=== PATIENT | female | born 1985 | race Caucasian/White ===

== ENCOUNTER → 2022-04-10 | Outpatient (CLI) | payer OTHER, SELFPAY ==
--- NOTE | 2022-04-10 10:21 | RAD_ITS ---
STUDY: X-RAY CHEST REASON FOR EXAM: Female, 37 years old. Thyroid enlargement. TECHNIQUE: Frontal and lateral views of the chest. COMPARISON: None. FINDINGS: The lungs are clear and expanded. There is no demonstrated pleural abnormality. Normal size heart. Normal mediastinum and josé luis. Normal visualized pulmonary arteries. Normal visualized aortic arch and descending thoracic aorta. Normal visualized thoracic spine. Normal visualized ribs, clavicles, and shoulders. Electronic device overlying the left midlung zone. There is no demonstrated abnormality of the visualized soft tissue structures of the upper abdomen. RAD/Chest PA and Lateral IMPRESSION: No active or acute cardiopulmonary disease. Electronically Signed: Justin Chew MD at 10:40 EDT ,
[2022-04-10 11:34] LABS: Hemoglobin A1c 5.5 % (3.8-5.6)
[2022-04-10 11:49] LABS: T3 Total - Triiodothyronine 1.32 ng/mL (0.6-1.81); Vitamin D,25 Hydroxy 27.2 ng/mL
[2022-04-10 11:56] LABS: Ferritin 15 ng/mL (8-252); Iron 86 ug/dL (50-170); Iron Binding Capacity,Total 467 ug/dL (250-450); Thyroid Stim Hormone (TSH) 1.29 uIU/mL (0.358-3.74); Troponin-I HS 18 pg/mL (3.0-54.0)
== END | disposition home or self-care (01) ==
PROVIDERS: PCP Student in an Organized Health Care Education/Training Program; Referring Provider Nurse Practitioner Family; Visit Provider Nurse Practitioner Family
DX: I47.1 Supraventricular tachycardia (principal); E04.9 Nontoxic goiter, unspecified; R77.8 Other specified abnormalities of plasma proteins
CPT/HCPCS: 36415; 71046; 82306; 82728; 83036; 83540; 83550; 84439; 84443; 84480; 84484

== ENCOUNTER → 2022-04-14 | Outpatient (CLI) | payer OTHER, SELFPAY ==
--- NOTE | 2022-04-14 11:26 | US_ITS ---
EXAM: US SOFT TISSUES HEAD AND NECK, THYROID CLINICAL INDICATION: SVT, ENLARGED THYROID TECHNIQUE: Greyscale and color doppler imaging was performed of the thyroid gland. This report was created using [employer] report generation technology. COMPARISON: None. FINDINGS: LEFT THYROID LOBE: Left thyroid lobe measures 4.8 x 1.6 x 1.3 cm with somewhat heterogeneous echo pattern. No distinct left thyroid nodule. RIGHT THYROID LOBE: Right thyroid lobe measures 5.4 x 1.8 x 1.4 cm. This diffusely irregular echogenicity. 10 mm nodule noted within the lower pole This nodule is solid or almost completely solid, hyperechoic or isoechoic, [id number], smoothly marginated and contains no echogenic foci. This nodule is mildly suspicious but no FNA or follow-up is necessary given the small size of this nodule. ISTHMUS: Isthmus measures 3 mm in AP dimension. No thyroid nodules are present. US/Thyroid IMPRESSION: Mildly enlarged thyroid gland with heterogeneous echotexture suggestive goiter. Electronically Signed: Landry Zaldivar MD at 13:33 EDT ,
== END | disposition home or self-care (01) ==
LOC: US 11:25
PROVIDERS: PCP Student in an Organized Health Care Education/Training Program; Referring Provider Nurse Practitioner Family; Visit Provider Nurse Practitioner Family
DX: I47.1 Supraventricular tachycardia (principal); E04.9 Nontoxic goiter, unspecified
CPT/HCPCS: 76536

== ENCOUNTER → 2022-04-26 | Outpatient (CLI) | payer OTHER, SELFPAY ==
--- NOTE | 2022-04-26 10:05 | ECHOD_ITS ---
Reason For Study: SVT/Tachycardia Procedure This was a 2D Doppler, Color Flow transthoracic echocardiogram. Exam performed in department. Left Ventricle Normal LV size. Left ventricular systolic function is normal. The estimated ejection fraction is 60 %. Normal diastology for age. No regional wall motion abnormalities noted. Right Ventricle Normal RV size. Normal systolic function. Atria Normal left atrium. Normal right atrium. Mitral Valve Normal mitral valve. Tricuspid Valve Normal tricuspid valve. Aortic Valve Normal aortic valve. Trisinus/trileaflet aortic valve. Pulmonic Valve Normal pulmonic valve. Great Vessels Normal aortic root. Pericardium/Pleural No pericardial effusion. MMode/2D Measurements & Calculations LVIDd: 4.3 cm IVSd: 0.86 cm Ao root diam: 2.9 cm LVIDs: 2.6 cm LVPWd: 0.86 cm LA dimension: 3.7 cm RVDd: 3.1 cm FS: 40.2 % LAV(MOD-bp): 43.1 ml LA A4 area: 17.0 cm2 RA A4 area: 11.8 cm2 LAV(MOD-bp) Indexed: 22.0 ml/m2 LAV(MOD-sp2): 38.6 ml LAV(MOD-sp4): 47.6 ml Time Measurements MV dec time: 0.22 sec Doppler Measurements & Calculations MV E max kris: 92.0 cm/sec Lat Peak E' Kris: 13.8 cm/sec Med Peak E' Kris: 13.6 cm/sec MV A max kris: 65.1 cm/sec E/E' lat: 6.6 E/E' med: 6.7 MV E/A: 1.4 MV V2 max: 93.4 cm/sec MV P1/2t max kris: 90.8 cm/sec Ao V2 max: 141.6 cm/sec MV max P.5 mmHg MV P1/2t: 50.5 msec Ao max P.0 mmHg MV V2 mean: 58.8 cm/sec MV dec slope: 527.1 cm/sec2 Ao V2 mean: 99.3 cm/sec MV mean P.6 mmHg MVA(P1/2t): 4.4 cm2 Ao mean P.5 mmHg MV V2 VTI: 21.4 cm Ao V2 VTI: 30.2 cm LV V1 max: 116.8 cm/sec PA V2 max: 125.4 cm/sec LV V1 max P.5 mmHg PA V2 mean: 96.2 cm/sec LV V1 mean P.0 mmHg LV V1 mean: 80.9 cm/sec LV V1 VTI: 23.4 cm ECHO/Echo Complete Interpretation Summary Normal LV size. Left ventricular systolic function is normal. The estimated ejection fraction is 60 %. Normal diastology for age. Ordering Physician: Marnie Mccann Referring Physician: Marnie Mccann Performed By: Shola Lee RCS
--- NOTE | 2022-04-26 19:35 | STRESSREP ---
Stress Test Report Exercise stressed. 37-year-old lady with a history of supraventricular tachycardia. Stress protocol: Resting EKG demonstrates normal sinus rhythm with a rate of 91 bpm normal intervals are noted resting blood pressure is 118/82 mmHg. The patient exercised according to the regular Doug protocol for total duration of 9 minutes the patient completed stage III of the Doug protocol. The maximum heart rate attained was 179 bpm which was 97% of max impacted heart rate the maximum workload was 10.4 metabolic equivalents. At rest there were no ST or T wave changes noted suggest ischemia and at peak exercise upsloping ST changes were noted with did not meet the criteria for ischemia. No clinical angina was noted no arrhythmias were noted. The peak blood pressure was 152/70 mmHg. Conclusion: Exercise stress test with no EKG criteria for ischemia at a high workload. No clinical angina noted. No arrhythmias noted.
== END | disposition home or self-care (01) ==
LOC: CVS 10:02
PROVIDERS: PCP Student in an Organized Health Care Education/Training Program; Referring Provider Nurse Practitioner Family; Visit Provider Nurse Practitioner Family
DX: I47.1 Supraventricular tachycardia (principal)
CPT/HCPCS: 93017; 93306

== ENCOUNTER 2023-07-28 16:36 | Emergency (ER) | payer OTHER, SELFPAY ==
[2023-07-28 16:37] VITALS: BP 154/108; PULSE 221; RESP 18; TEMP 36.2; O2SAT 100; BMI 37.6
--- NOTE | 2023-07-28 16:50 | EKG12_ITS ---
Test Reason : SVT Blood Pressure : / mmHG Vent. Rate : 114 BPM Atrial Rate : 114 BPM P-R Int : 142 ms QRS Dur : 088 ms QT Int : 334 ms P-R-T Axes : 060 080 029 degrees QTc Int : 460 ms Sinus tachycardia Nonspecific ST abnormality Abnormal ECG Confirmed by ADRIANNE BRYANT, KALI ([id number]), video news editor ALBERT SANCHEZ ([id number]) on 08/01/2023 12:40:02 PM Referred By: YUE Confirmed By:KALI SILVER MD
--- NOTE | 2023-07-28 16:52 | EDS_ITS ---
HPI History of Present Illness Chief Complaint: Palpitations Informant: patient Onset/Context/Timing Onset: Hours (1) Context: Sudden Onset Timing: Continuous Quality: Racing Location: Chest Worsened by: Nothing Relieved by: Nothing Narrative Narrative: Patient presents with palpitations that began today. Patient states they began approxi-1 hour prior to arrival. Patient states it began rather suddenly. Patient states that it feels like her heart is racing. Patient states I am in SVT again. Patient states that she has had adenosine in the past. Patient states last time it took 2 doses to convert her back to a sinus rhythm. Patient admits to some pain in her chest. Patient admits to some slight shortness of breath and occasional cough. Patient denies any nausea or vomiting. Patient denies any diaphoresis. Pain states she has been trying vagal maneuvers for the past hour with no improvement. [facility] Medical History (Updated 07/28/23 @ 18:[address] Neal Lafleur DO) Supraventricular tachycardia Allergy/AdvReac Type Severity Reaction Status Date / Time No Known Allergies Allergy Verified 07/28/23 16:37 Surgical History (Updated 07/28/23 @ 16:[address] Neal Lafleur DO) History of surgical removal of pilonidal cyst Hx of tonsillectomy Social History (Updated 07/28/23 @ 16:[address] Neal Lafleur DO) Smoking Status: Never smoker alcohol intake: current alcohol intake frequency: a few times a month ROS ROS ED Constitutional Constitutional ED: Denies chills or fever(s) Eyes Eyes: Denies blurry vision or change in vision ENT ENT ED: Denies rhinorrhea or sore throat Cardiovascular Cardiovascular: Reports chest pain, palpitations and racing heartbeat Respiratory/Chest Respiratory/Chest: Reports cough and dyspnea Gastrointestinal Gastrointestinal: Denies nausea or vomiting Genitourinary Genitourinary ED: Denies dysuria or hematuria Musculoskeletal Musculoskeletal: Denies back pain or neck pain Integumentary Denies abscess or rash Neurologic Neurologic: Denies headache(s) or weakness Allergic/Immunologic Allergic/Immunologic ED: Denies mouth swelling or urticaria EXAM Physical Exam Const Vital Signs: 07/28/23 16:37 07/28/23 17:11 07/28/23 17:17 Temperature 97.2 F L Temperature Source Temporal Pulse Rate 221 H 125 H 113 H Respiratory Rate 18 18 12 Blood Pressure 154/108 H 118/103 H 130/92 H Blood Pressure Mean 123 108 104 Pulse Ox 100 97 98 Oxygen Delivery Method Room Air Room Air Room Air Positive well nourished, well developed and obese General Appearance ED: well developed and NAD Nutritional Appearance: obese HEENT Reports moist mucous membranes Neck supple and no JVD Resp normal respiratory effort and clear to auscultation bilaterally Cardio regular rate and regular rhythm GI non-tender and non-distended Palpation: soft Extremity General Extremety ED: Negative for edema or tenderness General Extremity: Negative for edema Neuro oriented x3, CN's II-XII intact bilaterally and no sensory deficits noted Sensorium / Orientation: alert Motor Exam: strength 5/5 throughout Psych mental status grossly normal MDM MDM MDM Narrative Medical decision making narrative: Differential diagnosis includes supraventricular tachycardia, cardiac dysrhythmia, cardiac ischemia, anemia, and electrolyte abnormality. CBC will be obtained to assess for leukocytosis and anemia. Basic metabolic profile will be obtained to assess for electrolyte abnormality and renal function. EKG will be obtained to assess for cardiac dysrhythmia and cardiac ischemia. Lab Data Attestation: I reviewed the patient's lab results. Lab results narrative: CBC was reviewed. There is a mild leukocytosis of 13.6. The remainder is within normal limits. Basic metabolic profile was reviewed. BUN was 14 and creatinine was 1.27. Glucose was slightly elevated at 180. Labs: Laboratory Results - last 24 hr 07/28/23 17:00 WBC 13.6 H RBC 4.69 Hgb 12.6 Hct 39.9 MCV 85.1 MCH 26.9 L MCHC 31.6 L RDW Std Deviation 41.1 RDW Coeff of Lewis 13.3 Plt Count 375 MPV 10.2 Immature Gran % (Auto) 0.500 Neut % (Auto) 61.3 Lymph % (Auto) 28.6 Wilkinson % (Auto) 7.7 Eos % (Auto) 1.3 Baso % (Auto) 0.6 Absolute Neuts (auto) 8.4 H Absolute Lymphs (auto) 3.90 Nucleated RBC % 0 Sodium 138 Potassium 3.8 Chloride 105 Carbon Dioxide 27.0 Anion Gap 6 BUN 14 Creatinine 1.27 H Estim Creat Clear Calc 51.86 Est GFR (MDRD) Af Amer 60 Est GFR (MDRD) Non-Af 50 L BUN/Creatinine Ratio 11.0 Glucose 180 H Calcium 9.3 EKG Initial EKG: Attestation: I personally reviewed and interpreted this EKG as follows: Interpretation: SVT (204) Comments: EKG was obtained. On my independent interpretation, it shows supraventricular tachycardia with a rate of 204. QRS interval was normal at 78 ms. QTc interval was normal at 405 ms. [place] is normal at 85. There are nonspecific ST-T wave changes which are likely rate related. Prior EKG tracings: not available for review Prior: No Prior Follow-up EKG: Attestation: I personally reviewed and interpreted this EKG as follows: Interpretation: Sinus Tachycardia (114) and Non-Specific ST Changes Comments: EKG was obtained. On my independent interpretation, it showed a sinus tachycardia with a rate of 114. DC interval, QRS interval, and QTc intervals were all normal. [place] was normal. There are no acute ST or T wave changes. Treatment and Re-Evaluation :: Patient was given 6 mg of adenosine with no change in symptoms or rhythm. Patient was given 12 mg of adenosine. Patient converted to a sinus tachycardia with a rate in the 140s. Patient is feeling better. Patient was given IV fluids. She was feeling better on reevaluation. Patient's heart rate improved to 113. Patient was instructed to drink plenty of fluids. Patient was instructed to follow-up with her primary care physician in 5 to 7 days. Patient was instructed return if worse in any way. Patient understood and was agreeable with the plan. All questions were answered. Discharge Plan Triage Chief Complaint: Palpitations ED Provider: Neal Lafleur Dx/Rx/DC Orders Clinical Impression: Hyperglycemia, Supraventricular tachycardia Instructions: ED Understanding Supraventricular Tachycardia (SVT) Primary Care Provider: Fernando Benjamin Referrals: Fernando Benjamin, [Primary Care Provider] - 5-7 Days Disposition Disposition: Home, Self Care
--- NOTE | 2023-07-28 16:52 | ED.RN ---
NO OLD EKG
[2023-07-28] MEDS: Adenosine 6 MG/2 ML Syringe IV (17:03)
[2023-07-28] MEDS: Adenosine 6 MG/2 ML Syringe 12 MG IV (17:05)
[2023-07-28 17:07] LABS: Absolute Neutrophil Count 8.4 X10^3/uL (2.0-7.7); Basophil# 0.08 X10^3/uL; Basophil% 0.6 % (0-1); Eosinophil# 0.18 X10^3/uL; Eosinophils% 1.3 % (0-5); Hematocrit 39.9 % (37-47); Hemoglobin 12.6 g/dL (12.0-15.0); Lymphocyte % 28.6 % (19-41); Mean Corp Hgb Conc 31.6 g/dL (32-36); Mean Corpuscular Hgb 26.9 pg (27.0-32.0); Mean Corpuscular Volume 85.1 fL (81-99); Mean Platelet Vol. 10.2 fl (6.2-12.0); Monocyte# 1.05 X10^3/uL; Monocyte% 7.7 % (0-10); NRBC Flagged by Analyzer 0 % (0-5); Neutrophil # 8.35 X10^3/uL (2.7-7.7); Neutrophil % 61.3 % (47-70); Platelet Count 375 K/mm3 (150-450); RBC Distribution Width CV 13.3 % (11.6-14.6); RBC Distribution Width SD 41.1 fl (35.1-43.9); Red Blood Count 4.69 M/mm3 (4.2-5.4); White Blood Count 13.6 K/mm3 (4.4-11.0)
[2023-07-28] MEDS: 0.9% Normal Saline (1000mL) 1,000 ML 1000 ML IV ×2 (17:10→18:48)
[2023-07-28 17:11] VITALS: BP 118/103; PULSE 125; RESP 18; O2SAT 97
[2023-07-28 17:17] VITALS: BP 130/92; PULSE 113; RESP 12; O2SAT 98
[2023-07-28 17:24] LABS: Anion Gap 6 (5-15); BUN 14 mg/dL (7-18); Calcium,Total 9.3 mg/dL (8.5-10.1); Chloride 105 mmol/L (98-107); Creatinine, Serum 1.27 mg/dL (0.55-1.02); EST Glomerular Filtration Rate 50 mL/min (>60); Est Glom Filt Rate - Afr Amer 60 mL/min (>60); Estimated Creatinine Clearance 51.86 ml/min; Glucose 180 mg/dL (74-106); Potassium 3.8 mmol/L (3.5-5.1); Sodium Level 138 mmol/L (136-145)
--- NOTE | 2023-07-28 17:32 | EKG12_ITS ---
Test Reason : DYSRHYTHMIA Blood Pressure : / mmHG Vent. Rate : 204 BPM Atrial Rate : 000 BPM P-R Int : 000 ms QRS Dur : 078 ms QT Int : 220 ms P-R-T Axes : 000 085 -08 degrees QTc Int : 405 ms Critical Test Result: High HR Supraventricular tachycardia Marked ST abnormality, possible inferior subendocardial injury Abnormal ECG Confirmed by ADRIANNE BRYANT, KALI ([id number]), sound editor ALBERT SANCHEZ ([id number]) on 08/01/2023 12:40:18 PM Referred By: YUE Confirmed By:KALI SILVER MD
[2023-07-28 19:47] VITALS: BP 121/85; PULSE 112; RESP 22; O2SAT 100
== END 2023-07-28 19:48 | disposition home or self-care (01) ==
PROVIDERS: Emergency Provider Emergency Medicine; PCP Student in an Organized Health Care Education/Training Program; Visit Provider Emergency Medicine
DX: R73.9 Hyperglycemia, unspecified (principal); I47.10 Supraventricular tachycardia, unspecified; R06.02 Shortness of breath; R00.2 Palpitations
CPT/HCPCS: 80048; 85025; 93005; 96361; 96374; 96376; 99284; J7030; A4216; J0153